=== PATIENT | male | born 1990 | race Caucasian/White ===

== ENCOUNTER 2016-08-31 21:40 | Emergency (ER) | payer SELFPAY ==
[2016-08-31 21:50] VITALS: BP 133/79
[2016-08-31] MEDS ORDERED: Al Hydrox/Mg Hydrox/Simet LIQ* 30 ML UDC PO ONE (22:00)
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
== END 2016-08-31 22:13 | disposition home or self-care (01) ==
LOC: UCEAST 21:40
DX: K22.4 Dyskinesia of esophagus (principal); K21.9 Gastro-esophageal reflux disease without esophagitis; R10.13 Epigastric pain
CPT/HCPCS: 93005; 99202; A9270-GY; G0463